=== PATIENT | female | born 1970 | race Caucasian/White ===

== ENCOUNTER → 2016-04-02 | Outpatient (CLI) | payer MEDICAID ==
--- NOTE | 2016-04-02 15:42 | CT ---
Unenhanced CT Scan of the Left Lower Extremity (Left Knee Makoplasty Protocol) Clinical History: 45-year-old female with left knee osteoarthritis, being evaluated for degenerative change. ICD-10 Diagnostic Code: M17.12. Technique: A multidetector unenhanced helical CT scan was obtained from the caudal margin of the sacr oiliac joints inferiorly through the subtrochanteric aspect of the proximal left femur, and then from the left mid-femoral diaphysis caudally through the mid-tibial diaphysis, and then subsequently at t he level of the left ankle. Images at the level of the hip and ankle are reformatted at 2.50 mm incre ments, and at the knee were reformatted at 0.63 mm increments, and then reviewed in soft tissue and b one windows. Parasagittal and paracoronal reconstructed images of the knee are also provided. The DFO V is 25 cm. A dose reduction protocol was used. Comparison Study: None currently available. Findings: CT Scan of the Left Hip: There is some subchondral degenerative sclerosis and a vacuum phenomenon ass ociated with the SI joints. A T-shaped intrauterine device is present. The left hip is anatomically a ligned, and on the outside industrial sales representative topogram each femoral head is seated within its respective acetabulum (altho ugh there may be some mild left femoral-acetabular uncovering). The ischial pubic rami are intact. Th ere is no is symphysis pubis diastasis. CT Scan of the Left Knee: There is slight lateral patellar tilting without rakesh subluxation, and the patellofemoral joint spaces are reasonably well-preserved. There is no subchondral sclerosis, or karan de formation. There is no suprapatellar joint effusion, or loose osteochondral body. There is a mild degree of medial femoral-tibial compartment narrowing. There is no fracture, dislocation, or lytic or blastic lesion. The popliteal fossa appears normal. CT Scan of the Left ankle: Normal. Impression: There is some minor lateral patellar tilting without rakesh subluxation or significant pat ellofemoral joint space narrowing, and minimal medial femoral-tibial compartment narrowing of the lef t knee.
== END ==
LOC: FIMAGING 11:47
PROVIDERS: ATTEND Orthopaedic Surgery
DX: M17.12 Unilateral primary osteoarthritis, left knee (principal)